=== PATIENT | male | born 1985 | race Caucasian/White ===

== ENCOUNTER → 2017-07-27 | Outpatient (CLI) | payer OTHER | END | disposition home or self-care (01) | LOC: CFH 14:21 | PROVIDERS: ATTEND Otolaryngology | DX: J34.2 Deviated nasal septum (principal); J32.2 Chronic ethmoidal sinusitis; J30.9 Allergic rhinitis, unspecified | CPT/HCPCS: 70486 ==

== ENCOUNTER 2018-10-08 07:40 | Day surgery (SDC) | payer OTHER ==
[~2018-10-08] VITALS: Ht 180.3 cm; Wt 74.2 kg
[2018-10-08] MEDS ORDERED: FENTANYL PF 100 MCG/2ML ONE ×2 (08:03→10:00)
[2018-10-08] MEDS ORDERED: MIDAZOLAM 1 MG/ML, 2ML ONE (08:03)
[2018-10-08] MEDS ORDERED: LACTATED RINGERS 1,000 ML IV SCH (08:23)
[2018-10-08] MEDS ORDERED: FLUTICASONE NS (08:28)
[2018-10-08] MEDS ORDERED: EMTR1TAB8 PO (08:28)
[2018-10-08] MEDS ORDERED: FINA1TAB16 PO (08:28)
[2018-10-08] MEDS ORDERED: VITAMIN D3 PO (08:28)
[2018-10-08] MEDS ORDERED: TEMA30CA PO (08:28)
[2018-10-08] MEDS ORDERED: BUPR300T49 PO (08:28)
[2018-10-08] MEDS ORDERED: PLEASE ENTER HEIGHT AND WEIGHT MC SCH (08:30)
[2018-10-08 08:31] VITALS: BP 116/77
[2018-10-08] MEDS ORDERED: LIDOCAINE 1%-EPI 1:100K, 30ML ONE (08:38)
[2018-10-08] MEDS ORDERED: FLUORESCEIN SODIUM 500 MG/5 ML ONE (08:38)
[2018-10-08] MEDS ORDERED: EPINEPHRINE TOPICAL SOLN 1 MG/ML, 30ML ONE (08:38)
[2018-10-08] MEDS ORDERED: BACITRACIN OINT 500U/GM, 15 GM ONE (08:38)
[2018-10-08] MEDS ORDERED: NEOSTIGMINE 1 MG/ML, 10ML ONE (08:56)
[2018-10-08] MEDS ORDERED: DEXAMETHASONE 4 MG/ML, 1ML ONE (08:56)
[2018-10-08] MEDS ORDERED: ROCURONIUM 10 MG/ML,10ML ONE (08:56)
[2018-10-08] MEDS ORDERED: PROPOFOL 10 MG/ML, 20ML ONE (08:56)
[2018-10-08] MEDS ORDERED: ONDANSETRON 2MG/ML, 2ML ONE (08:56)
[2018-10-08] MEDS ORDERED: GLYCOPYRROLATE 0.2MG/1ML, 5ML ONE (08:56)
[2018-10-08] MEDS ORDERED: SUCCINYLCHOLINE 20 MG/ML, 10ML ONE (08:56)
[2018-10-08] MEDS ORDERED: LABETALOL 5MG/ML, 20ML IV PRN (09:30)
[2018-10-08] MEDS ORDERED: KETOROLAC 30 MG/1 ML IV PRN (09:30)
[2018-10-08] MEDS ORDERED: MEPERIDINE/PF 25MG/0.5ML IVPush PRN (09:30)
[2018-10-08] MEDS ORDERED: ONDANSETRON 2MG/ML, 2ML IVPush PRN (09:30)
[2018-10-08] MEDS ORDERED: METOCLOPRAMIDE 5 MG/ML, 2ML IV PRN (09:30)
[2018-10-08] MEDS ORDERED: OXYcodone 5 MG/5 ML ORAL.SOL UDC PO PRN (09:30)
[2018-10-08] MEDS ORDERED: ALBUTEROL SULFATE 2.5 MG/3 ML NPPB PRN (09:30)
[2018-10-08] MEDS ORDERED: HYDROmorphone 1 MG/ML, 1ML IV PRN (09:30)
[2018-10-08] MEDS ORDERED: hydrALAzine 20 MG/ML, 1ML IV PRN (09:30)
[2018-10-08] MEDS ORDERED: PROMETHAZINE 25 MG/ML, 1ML IV PRN (09:30)
[2018-10-08] MEDS ORDERED: OXYcodone 5 MG/5 ML ORAL.SOL UDC ONE (10:00)
[2018-10-08] MEDS ORDERED: SUGAMMADEX 200 MG/2 ML IVPush ONE (10:05)
[2018-10-08] MEDS: FENTANYL PF 100 MCG/2ML IV PRN ×2 (10:21→10:31)
[2018-10-08] MEDS ORDERED: HYDROmorphone 1 MG/ML, 1ML ONE (10:34)
== END 2018-10-08 12:05 | disposition home or self-care (01) ==
LOC: OUT 07:40
PROVIDERS: ATTEND Otolaryngology
DX: J34.2 Deviated nasal septum (principal); J34.3 Hypertrophy of nasal turbinates; J30.1 Allergic rhinitis due to pollen; F41.9 Anxiety disorder, unspecified; Z72.89 Other problems related to lifestyle
CPT/HCPCS: 30140; 30520; J0330; J1100; J1170; J2250; J2405; J2704; J2710; J3010; J3490; J7120

== ENCOUNTER 2019-02-12 16:17 | Emergency (ER) | payer OTHER ==
[~2019-02-12] VITALS: Ht 180.3 cm; Wt 73.4 kg
[~2019-02-12 16:17] MED LIST: BUPR300T49 PO; EMTR1TAB8 PO; FINA1TAB16 PO; FLUTICASONE NS; TEMA30CA PO; VITAMIN D3 PO
--- NOTE | 2019-02-12 17:18 | NUR ---
PT RESTING QUIETLY ON BED, WEARING SUNGLASSES. C/O MIGRAINE X 2 DAYS, PHOTO SENSITIVITY, NAUSEA. TOOK GENERIC EXCEDRIN "2-3 HOURS AGO" - ABOUT 1400. MINOR RELIEF. LAST ORAL INTAKE: PIECE OF BREAD [employer]. HAS BEEN DRINKING WATER TODAY.
[2019-02-12] MEDS ORDERED: LORA10TA75 PO (17:26)
[2019-02-12] MEDS ORDERED: EMTR1TAB8 PO (17:26)
[2019-02-12] MEDS ORDERED: ALPR0.5T6 PO (17:26)
[2019-02-12] MEDS ORDERED: FLUT9.9S NAS (17:26)
[2019-02-12] MEDS ORDERED: TEMA30CA PO (17:26)
[2019-02-12] MEDS ORDERED: FINA1TAB PO (17:26)
[2019-02-12] MEDS ORDERED: ASPI1TAB31 PO (17:29)
[2019-02-12] MEDS ORDERED: DIPHENHYDRAMINE 25 MG CAPSULE PO ONE (18:00)
[2019-02-12] MEDS ORDERED: KETOROLAC 60 MG/2 ML IM ONE (18:00)
[2019-02-12] MEDS ORDERED: METOCLOPRAMIDE 10MG TABLET PO ONE (18:00)
[2019-02-12] MEDS ORDERED: METOCLOPRAMIDE 10MG TABLET ONE (18:08)
[2019-02-12] MEDS ORDERED: KETOROLAC 60 MG/2 ML ONE (18:09)
[2019-02-12] MEDS ORDERED: DIPHENHYDRAMINE 25 MG CAPSULE ONE (18:09)
[2019-02-12] MEDS ORDERED: HYDROcodone/APAP 5/325 TABLET ONE (19:06)
--- NOTE | 2019-02-12 19:12 | NUR ---
TASK RN: PT MEDICATED PER MAR.
--- NOTE | 2019-02-12 19:27 | NUR ---
REPORTS IMPROVEMENT IN SX: DECREASED NAUSEA, DECREASED PHOTOPHOBIA. PAIN 4/10
[2019-02-12] MEDS ORDERED: HYDROcodone/APAP 5/325 TABLET PO ONE (19:30)
[2019-02-12 20:10] VITALS: BP 110/71
== END 2019-02-12 20:13 | disposition home or self-care (01) ==
LOC: ED 20:07
DX: G43.019 Migraine without aura, intractable, without status migrainosus (principal); Z87.891 Personal history of nicotine dependence
CPT/HCPCS: 96372; 99284; J1885; Q0163

== ENCOUNTER 2019-03-10 15:20 | Outpatient (CLI) | payer OTHER | END 2019-03-10 23:59 | disposition home or self-care (01) | LOC: CFH 15:20 | DX: G43.009 Migraine without aura, not intractable, without status migrainosus (principal) | CPT/HCPCS: 70551 ==

== ENCOUNTER 2020-03-09 19:43 | Emergency (ER) | payer OTHER ==
[~2020-03-09] VITALS: Ht 180.3 cm; Wt 77.0 kg
[~2020-03-09 19:43] MED LIST changes: +ALPR0.5T6 PO; +ASPI1TAB31 PO; +FINA1TAB PO; +FLUT9.9S NAS; +LORA10TA75 PO
[2020-03-09] MEDS ORDERED: HYDROcodone/APAP 5/325 TABLET ONE (20:23)
[2020-03-09] MEDS ORDERED: HYDROcodone/APAP 5/325 TABLET PO ONE (20:30)
--- NOTE | 2020-03-09 20:44 | NUR ---
PT TO ROOM FROM LOBBY
[2020-03-09] MEDS ORDERED: SODIUM CHLORIDE FLUSH 10ML SYR IVF ONE (21:30)
[2020-03-09] MEDS ORDERED: PROPOFOL 10 MG/ML, 20ML ONE (21:47)
[2020-03-09] MEDS ORDERED: ONDANSETRON 2MG/ML, 2ML ONE (21:47)
--- NOTE | 2020-03-09 21:50 | NUR ---
SET UP FRO PROCEDURAL SEDATION. CONSENT SIGNED. WHO FORM AT BEDSIDE.
[2020-03-09] MEDS ORDERED: ONDANSETRON 2MG/ML, 2ML IVPush ONE (22:00)
[2020-03-09] MEDS ORDERED: SODIUM CHLORIDE 0.9% 1,000ML IVBOLUS ONE (22:00)
[2020-03-09] MEDS ORDERED: PROPOFOL 10 MG/ML, 20ML IVPush ONE (22:00)
--- NOTE | 2020-03-09 22:05 | NUR ---
Rapid covid swab collected and walked to lab at this time
--- NOTE | 2020-03-09 22:07 | NUR ---
time out. sedation starts at 2207. refer to packet.
[2020-03-09] MEDS ORDERED: KETAMINE 10 MG/ML, 20ML ONE (22:16)
[2020-03-09 23:20] VITALS: BP 119/69
--- NOTE | 2020-03-09 23:21 | NUR ---
PT A/O X4 AND ASKING WHEN HE CAN GO HOME. PT HAS FRIEND WHO WILL BE STAYING WITH PT AT BEDSIDE. PT STATED "HIS ARM FEELS BETTER BUT STILL HURTS A BIT" PROVIDER NOTIFIED
[2020-03-09] MEDS ORDERED: KETAMINE 100 MG/ML, 5ML IV ONE (23:30)
[2020-03-09] MEDS ORDERED: KETAMINE 10 MG/ML, 20ML IV ONE (23:30)
== END 2020-03-09 23:49 | disposition home or self-care (01) ==
LOC: ED 23:41
DX: S52.591A Other fractures of lower end of right radius, initial encounter for closed fracture (principal); Z11.59 Encounter for screening for other viral diseases; W18.30XA Fall on same level, unspecified, initial encounter; Y93.89 Activity, other specified; Y92.331 Roller skating rink as the place of occurrence of the external cause; Y99.8 Other external cause status
CPT/HCPCS: 25605; 73100; 73110; 76000; 87635; 96374; 99152; 99153; 99285; J2405; J2704; J7030

== ENCOUNTER 2020-03-11 12:58 | Day surgery (SDC) | payer OTHER ==
[~2020-03-11] VITALS: Ht 180.3 cm; Wt 76.2 kg
[2020-03-11] MEDS ORDERED: LACTATED RINGERS 1,000 ML IV SCH (13:19)
[2020-03-11] MEDS ORDERED: HYDR-3240 PO (13:19)
[2020-03-11 13:20] VITALS: BP 135/88
[2020-03-11] MEDS ORDERED: CHLORHEXIDINE 15 ML UDC ONE (13:22)
[2020-03-11] MEDS ORDERED: BUPIVACAINE/PF 0.5% ONE ×2 (13:22→13:30)
[2020-03-11] MEDS ORDERED: MIDAZOLAM 1 MG/ML, 2ML ONE (13:23)
[2020-03-11] MEDS ORDERED: sumatriptan (13:37)
[2020-03-11] MEDS ORDERED: ESOM20CA PO (13:37)
[2020-03-11] MEDS ORDERED: zyrtec (13:37)
[2020-03-11] MEDS ORDERED: FENTANYL PF 100 MCG/2ML ONE (13:50)
[2020-03-11] MEDS ORDERED: CHLORHEXIDINE 15 ML UDC MM ONE (14:00)
[2020-03-11] MEDS ORDERED: ACETAMINOPHEN 500 MG TABLET PO ONE (14:00)
[2020-03-11] MEDS ORDERED: KETOROLAC 30 MG/1 ML ONE (14:17)
[2020-03-11] MEDS ORDERED: hydrALAzine 20 MG/ML, 1ML IV PRN (14:30)
[2020-03-11] MEDS ORDERED: LABETALOL 5MG/ML, 20ML IV PRN (14:30)
[2020-03-11] MEDS ORDERED: OXYcodone 5 MG/5 ML ORAL.SOL UDC PO PRN (14:30)
[2020-03-11] MEDS ORDERED: FENTANYL PF 100 MCG/2ML IV PRN (14:30)
[2020-03-11] MEDS ORDERED: PROMETHAZINE 25 MG/ML, 1ML IVPush PRN (14:30)
[2020-03-11] MEDS ORDERED: HYDROmorphone 1 MG/ML, 1ML INJ IVPush PRN (14:30)
[2020-03-11] MEDS ORDERED: ONDANSETRON 2MG/ML, 2ML IVPush PRN (14:30)
[2020-03-11] MEDS ORDERED: EPHEDRINE 50 MG/ML, 1ML IVPush PRN (14:30)
[2020-03-11] MEDS ORDERED: MEPERIDINE/PF 25MG/0.5ML IVPush PRN (14:30)
[2020-03-11] MEDS ORDERED: DEXAMETHASONE 4 MG/ML, 1ML ONE (14:51)
[2020-03-11] MEDS ORDERED: PROPOFOL 10 MG/ML, 20ML ONE (14:51)
[2020-03-11] MEDS ORDERED: ONDANSETRON 2MG/ML, 2ML ONE (14:51)
[2020-03-11] MEDS ORDERED: PROPOFOL 50 ML ONE (14:51)
[2020-03-11] MEDS ORDERED: CEFAZOLIN 1,000 MG ONE (14:51)
== END 2020-03-11 17:30 | disposition home or self-care (01) ==
LOC: OUT 12:58
PROVIDERS: ATTEND Orthopaedic Surgery Hand Surgery
DX: S52.571A Other intraarticular fracture of lower end of right radius, initial encounter for closed fracture (principal); G56.01 Carpal tunnel syndrome, right upper limb; G89.18 Other acute postprocedural pain; G43.909 Migraine, unspecified, not intractable, without status migrainosus; K21.9 Gastro-esophageal reflux disease without esophagitis; Z79.899 Other long term (current) drug therapy; W18.39XA Other fall on same level, initial encounter; Y93.51 Activity, roller skating (inline) and skateboarding; Y92.89 Other specified places as the place of occurrence of the external cause; Y99.8 Other external cause status
CPT/HCPCS: 25608; 64415; 64721; 73110; 76000; C1713; J0690; J1100; J1885; J2250; J2405; J2704; J3010; J7120

== ENCOUNTER 2020-11-29 07:05 | Outpatient (CLI) | payer OTHER ==
[~2020-11-29 07:05] MED LIST changes: -ALPR0.5T6 PO; +ALPR0.5T93 PO; +ESOM20CA PO; +HYDR-2214 PO; +sumatriptan; +zyrtec
[2020-11-29 07:26] LABS: BASOPHILS % (AUTO) 1 % (0-1); EOSINOPHILS % (AUTO) 4 % (1-7); LYMPHOCYTES % (AUTO) 47 % (22-44); MEAN CORPUSCULAR HEMOGLOBIN 29.6 pg (27.5-34.5); MEAN CORPUSCULAR HGB CONC 34.2 g/dL (33.2-36.2); MEAN PLATELET VOLUME 7.2 fL (7.4-10.4); MONOCYTES % (AUTO) 7 % (2-9); NEUTROPHILS % (AUTO) 41 % (42-75); PLATELET COUNT 317 x10^3/uL (130-400); RED BLOOD COUNT 5.08 x10^6/uL (4.38-5.82); RED CELL DISTRIBUTION WIDTH 13.8 % (9.4-14.8)
[2020-11-29 07:51] LABS: ALANINE AMINOTRANSFERASE 57 U/L (12-78); ALBUMIN 4.1 g/dL (3.4-5.0); ANION GAP 6 mmol/L (5-15); CALCIUM 9.2 mg/dL (8.5-10.1); CHLORIDE 107 mmol/L (98-107); CHOLESTEROL, TOTAL 220 mg/dL (140-239); CREATININE 1.14 mg/dL (0.7-1.3)
[2020-11-29 08:02] LABS: ALKALINE PHOSPHATASE 49 U/L (45-117); BILIRUBIN,TOTAL 0.7 mg/dL (0.2-1.0); CHOL/HDL RATIO 5.1; HDL CHOL % 20 % (26-37); HDL CHOLESTEROL (DIRECT) 43 mg/dL (40-60); LDL CHOLESTEROL,CALCULATED 124 mg/dL (54-169); LDL/HDL RATIO 2.9 (0.5-3.0); TOTAL PROTEIN 7.6 g/dL (6.4-8.2); TRIGLYCERIDES 267 mg/dL (50-200); VLDL CHOLESTEROL 53 mg/dL (0-25)
== END 2020-11-29 23:59 | disposition home or self-care (01) ==
LOC: LAB 07:05
PROVIDERS: ATTEND Nurse Practitioner Family
DX: Z00.00 Encounter for general adult medical examination without abnormal findings (principal); E55.9 Vitamin D deficiency, unspecified; E78.5 Hyperlipidemia, unspecified; J30.9 Allergic rhinitis, unspecified; R94.6 Abnormal results of thyroid function studies; R73.02 Impaired glucose tolerance (oral); R10.13 Epigastric pain; F41.1 Generalized anxiety disorder; Z80.1 Family history of malignant neoplasm of trachea, bronchus and lung; Z72.52 High risk homosexual behavior
CPT/HCPCS: 36415; 80053; 80061; 82150; 82306; 83036; 83690; 84443; 85025